=== PATIENT | male | born 1965 | race African-American/Black ===

== ENCOUNTER 2021-11-02 20:00 | Emergency (ER) | payer MEDICAID, OTHER ==
[~2021-11-02] VITALS: Ht 182.9 cm; Wt 90.7 kg
[2021-11-02] MEDS ORDERED: HYDROmorphone HCL 2 MG/ML VL IV ONE (20:30)
[2021-11-02] MEDS ORDERED: ONDANSETRON HCL 4 MG/2 ML VIAL IV ONE (20:30)
[2021-11-02] MEDS ORDERED: SODIUM CHLORIDE 0.9% 500 ML IV ONE (20:30)
[2021-11-02 21:30] LABS: Basophils # (auto) 0.1 10 ^3/uL (0-0.2); Eosinophils # (auto) 0.2 10 ^3/uL (0-0.8); Eosinophils % (auto) 2.1 % (0.0-7.0); Hemoglobin 13.8 g/dL (13.5-17.5)
[2021-11-02 21:32] LABS: Basophils % (auto) 0.8 % (0.0-2.0); Hematocrit 39.6 % (41.0-53.0); Lymphocytes # (auto) 2.1 10 ^3/uL (0.4-5.4); Lymphocytes % (auto) 19.2 % (10.0-50.0); Mean Corpuscular Hemoglobin 34.7 pg (28.0-32.0); Mean Corpuscular Hgb Conc. 34.9 g/dL (32.0-36.0); Mean Corpuscular Volume 99.3 fL (80.0-100.0); Monocytes # (auto) 0.8 10 ^3/uL (0-1.3); Monocytes % (auto) 6.8 % (0.0-12.0); Neutrophils # (auto) 7.9 10 ^3/uL (1.6-8.6); Neutrophils % (auto) 71.1 % (37.0-80.0); Nucleated Red Blood Cells % 0.1 %; Red Blood Cells 3.99 10^6/uL (4.5-5.90); Red Cell Distribution Width 12.5 % (11.8-14.3); White Blood Cell 11.2 10^3/uL (4.4-10.8)
[2021-11-02] MEDS ORDERED: TETANUS-DIPTH-ACEL PERTUSSIS 0.5ML SYR Tdap IM ONE (21:45)
[2021-11-02] MEDS ORDERED: ceFAZolin 1GM/50ML 50 ML IV ONE (21:45)
[2021-11-02 21:48] LABS: Albumin 3.3 g/dL (3.4-5.0); Calcium 8.2 mg/dL (8.5-10.1); Potassium 3.6 mmol/L (3.5-5.1)
[2021-11-02 21:51] LABS: BUN/Creatinine Ratio 10.8; Total Protein 6.5 g/dL (6.4-8.2)
[2021-11-02 22:12] LABS: INR 1.03 (0.9-1.15); Partial Thromboplastin Time 29.2 sec (23.6-33.0)
[2021-11-02] MEDS ORDERED: TETANUS IMMUNE GLOBULIN 250 UNIT/ML SYRG IM ONE (23:00)
[2021-11-03 00:10] VITALS: BP 141/64
== END 2021-11-03 00:44 | disposition home or self-care (01) ==
LOC: EDBD 20:00 → ER 20:05
DX: S82.301A Unspecified fracture of lower end of right tibia, initial encounter for closed fracture (principal); S82.831A Other fracture of upper and lower end of right fibula, initial encounter for closed fracture; S62.661A Nondisplaced fracture of distal phalanx of left index finger, initial encounter for closed fracture; S80.12XA Contusion of left lower leg, initial encounter; S09.90XA Unspecified injury of head, initial encounter; I10 Essential (primary) hypertension; F17.210 Nicotine dependence, cigarettes, uncomplicated; Z86.73 Personal history of transient ischemic attack (TIA), and cerebral infarction without residual deficits; Y04.8XXA Assault by other bodily force, initial encounter; Y93.89 Activity, other specified; Y92.89 Other specified places as the place of occurrence of the external cause; Y99.8 Other external cause status
CPT/HCPCS: 29125; 29515; 36415; 70450; 71045; 73120; 73502; 73552; 73560; 73600; 80053; 85025; 85610; 85730; 90471; 90715; 93005; 96361; 96365; 96375; 99285; J0690; J1170; J2405; J7040; 96372